=== PATIENT | male | born 1955 | race Caucasian/White ===

== ENCOUNTER 2017-01-24 06:14 | Day surgery (SDC) | payer OTHER, BC ==
[~2017-01-24 06:14] MED LIST: Midazolam 1 MG/ML 2 ML SDV ONE; fentaNYL 100 MCG/2 ML SDV ONE
[2017-01-24] MEDS ORDERED: Midazolam 1 MG/ML 2 ML SDV IV ONE ×4 (06:15→07:29)
[2017-01-24] MEDS ORDERED: fentaNYL 100 MCG/2 ML SDV IV ONE ×3 (06:15→07:28)
[2017-01-24] MEDS ORDERED: Dextrose 5%-0.45% NaCl 1,000 ML IV SCH (06:40)
--- NOTE | 2017-01-24 08:13 | OR ---
DATE: 01/24/2017 PROCEDURE: Esophagogastroduodenoscopy. INSTRUMENT USED: GIF-H180 Olympus video panendoscope. PREMEDICATIONS: No oral topical anesthesia used. Fentanyl 100 mcg intravenous, Versed 2 mg intravenous. The procedure was done under pulse oximetry, BP recording, and massotherapist. INDICATION: The patient with previous esophageal ulcers, on high-dose PPI. DESCRIPTION OF PROCEDURE: Esophagogastroduodenoscopy is performed for detection of any active erosive lesions, verification of total healing of esophageal ulcers and rule out malignancy, for any evidence of [place] esophagus, endoscopic hemostasis therapy if needed. The scope was passed with ease. Adequate visualization of the esophagus was made from proximal to distal areas. No upper esophageal lesions identified. No distal esophageal stricture. No uphill or downhill esophageal varices. No Neha-Randall tear. No evidence of erosive esophagitis by Burt criteria. No esophageal polyp or tumor mass identified. Z-line was seen at around 39 cm distal to the oral verge, configuration consistent with grade 1 by Zapp classification. Small sliding hiatal hernia was noted. No proximal gastric varices noted. Gastric fundus examination by retroflexion showed no polypoid lesions. No gastric ulcer, malignant mass, or vascular ectasia identified. Duodenal bulb showed no ulcer. Visualized second part of the duodenum was unremarkable. No bleeding was noted from any of the visualized areas at the completion of examination. Photographs were taken of the duodenal bulb, gastric antrum, fundus, and distal esophagus. IMPRESSION: Small sliding hiatal hernia. The patient tolerated the procedure well. [facility] /[id number]
--- NOTE | 2017-01-24 08:56 | LETTER ---
01/24/2017 EDGAR Plunkett [facility] [address] [place] [address], [place] [id number] RE: TAY ARMIJO : 1955 Dear Ms. Beaver: Mr. Tay Armijo had esophagogastroduodenoscopy done this morning, and he tolerated the procedure well. I herewith send a copy of the endoscopy note and photographs for your review. Thank you. Sincerely, [facility] /[id number]
[2017-01-24 09:46] VITALS: BP 150/66
== END 2017-01-24 09:25 | disposition home or self-care (01) ==
LOC: DL.ENDO 06:14
PROVIDERS: ATTEND Internal Medicine Gastroenterology
DX: K44.9 Diaphragmatic hernia without obstruction or gangrene (principal); I10 Essential (primary) hypertension; E66.9 Obesity, unspecified; K21.9 Gastro-esophageal reflux disease without esophagitis; F17.210 Nicotine dependence, cigarettes, uncomplicated; Z79.82 Long term (current) use of aspirin; Z88.1 Allergy status to other antibiotic agents; Z88.8 Allergy status to other drugs, medicaments and biological substances; Z68.30 Body mass index [BMI] 30.0-30.9, adult
CPT/HCPCS: 43235; J7042; J2250; J3010

== ENCOUNTER 2022-12-12 06:30 | Day surgery (SDC) | payer MEDICARE, OTHER ==
[2022-12-12] MEDS ORDERED: Dextrose 5%-0.45% NaCl 1,000 ML IV SCH (07:00)
[2022-12-12] MEDS ORDERED: fentaNYL 100 MCG/2 ML SDV ONE (07:36)
[2022-12-12] MEDS ORDERED: Midazolam 1 MG/ML 2 ML SDV ONE (07:36)
[2022-12-12] MEDS ORDERED: fentaNYL 100 MCG/2 ML SDV IV ONE ×3 (07:45→07:57)
[2022-12-12] MEDS ORDERED: Midazolam 1 MG/ML 2 ML SDV IV ONE ×6 (07:46→07:55)
[2022-12-12 09:08] VITALS: BP 124/54; PULSE 45
== END 2022-12-12 09:43 | disposition home or self-care (01) ==
LOC: DL.ENDO 06:30
PROVIDERS: ATTEND Internal Medicine Gastroenterology
DX: K52.9 Noninfective gastroenteritis and colitis, unspecified (principal); D12.5 Benign neoplasm of sigmoid colon; K57.30 Diverticulosis of large intestine without perforation or abscess without bleeding; K64.8 Other hemorrhoids; E78.5 Hyperlipidemia, unspecified; I10 Essential (primary) hypertension; K21.9 Gastro-esophageal reflux disease without esophagitis; I12.9 Hypertensive chronic kidney disease with stage 1 through stage 4 chronic kidney disease, or unspecified chronic kidney disease; N18.9 Chronic kidney disease, unspecified; N40.0 Benign prostatic hyperplasia without lower urinary tract symptoms; N28.1 Cyst of kidney, acquired; E66.01 Morbid (severe) obesity due to excess calories; Z87.891 Personal history of nicotine dependence; Z88.0 Allergy status to penicillin; Z88.5 Allergy status to narcotic agent; Z88.1 Allergy status to other antibiotic agents; Z68.28 Body mass index [BMI] 28.0-28.9, adult
CPT/HCPCS: J2250; J3010; J7042